=== PATIENT | female | born 1975 | race Caucasian/White ===

== ENCOUNTER 2024-02-15 13:24 | Observation (INO) ==
[2024-02-15 14:11] LABS: ABS Basophils 0.1 10^3/uL (0.0-0.1); ABS Eosinophils 0.1 10^3/uL (0.0-0.5); ABS Lymphocytes 2.3 10^3/uL (1.0-4.8); ABS Monocytes 0.9 10^3/uL (0.0-0.9); ABS Neutrophils 12.3 10^3/uL (1.5-7.6); ABS Nucleated RBC 0.01 10^3/ul; Eosinophil % 0.8 %; Hematocrit 33.2 % (35-45); Hemoglobin 11.3 g/dL (11.5-14.3); Lymphocyte % 14.6 %; Mean Corpuscular Hemoglobin 29.4 pg (27-33); Mean Corpuscular Hgb Conc 34.2 g/dL (31-36); Mean Corpuscular Volume 86.1 fL (80-97); Mean Platelet Volume 8.7 fL (7.5-11.2); Nucleated Red Blood Cells % 0.1 %/100WBC (0.0-0.8); Platelet Count 346 10^3/uL (150-450); Red Blood Count 3.86 10^6/uL (3.63-4.92); Red Cell Distribution Width 15.2 % (12-17); White Blood Count 15.7 10^3/uL (3.8-11.8)
[2024-02-15 14:19] LABS: INR 1.3 (0.85-1.14)
[2024-02-15 14:37] LABS: Albumin 3.9 g/dL (3.2-5.2); Albumin/Globulin Ratio 1.1 (1-3); Calcium 10.2 mg/dL (8.6-10.3); Creatinine, Serum 0.75 mg/dL (0.51-0.95); Globulin 3.6 g/dL (2-4); Potassium 3.4 mmol/L (3.5-5.0); Total Bilirubin 0.4 mg/dL (0.2-1.0); Total Protein 7.5 g/dL (6.4-8.9); eGFR CKD-EPI 96.9 (>60)
[2024-02-15 15:05] LABS: Urine Appearance Clear; Urine Bilirubin Negative (Negative); Urine Blood Trace (Negative); Urine Color Light-Yellow; Urine Glucose Negative (Negative); Urine Ketones Negative (Negative); Urine Nitrite Negative (Negative); Urine Protein Negative (Negative); Urine Specific Gravity 1.008 (1.002-1.030); Urine Urobilinogen Negative (Negative)
[2024-02-15 15:07] LABS: Urine Bacteria Absent /HPF (Absent); Urine Red Blood Cell Trace(0-2/hpf) /HPF (0-Trace); Urine Squamous Epithelial Cell Present /HPF (Absent); Urine White Blood Cell Trace(0-5/hpf) /HPF (0-Trace)
[2024-02-15] MEDS: Potassium Chlor 20 meq TAB.ER PO ONE (15:24)
[2024-02-15] MEDS: ceFAZolin 1 GM ADVAN 1 GM in NS 0.9% 50 ML 50 ML IVPB ONE (15:25)
[2024-02-15] MEDS ORDERED: Al Hydrox/Mg Hydrox/Simet LIQ 30 ML UDC PO PRN (15:37)
[2024-02-15] MEDS: NS 0.9% 1000 ml BAG 1,000 ML IV SCH (16:18)
[2024-02-15] MEDS: Vancomycin 1,000 MG in NS 0.9% 250 ml 250 ML IVPB ONE (16:25)
[2024-02-15] MEDS: Enoxaparin 40 MG/0.4 ML SYR SUBCUT SCH (16:30)
[2024-02-15] MEDS ORDERED: ceFAZolin 500 MG VIAL 500 MG in NS 0.9% 50 ML 50 ML IVPB SCH (22:00)
[2024-02-15] MEDS ORDERED: ceFAZolin 1 GM Q8H (ADVAN) IVPB SCH (22:00)
[2024-02-15] MEDS: ceFAZolin 1 GM Q8H (ADVAN) IVPB SCH (22:17)
[2024-02-16 06:06] LABS: Hematocrit 29.8 % (35-45); Mean Corpuscular Hemoglobin 28.8 pg (27-33); Mean Corpuscular Hgb Conc 33.7 g/dL (31-36); Mean Corpuscular Volume 85.7 fL (80-97); Mean Platelet Volume 8.8 fL (7.5-11.2); Platelet Count 363 10^3/uL (150-450); Red Blood Count 3.48 10^6/uL (3.63-4.92); Red Cell Distribution Width 15.3 % (12-17); White Blood Count 14.3 10^3/uL (3.8-11.8)
[2024-02-16 06:34] LABS: C Reactive Protein 271.73 mg/L (<8.01); Calcium 9.4 mg/dL (8.6-10.3); Creatinine, Serum 0.5 mg/dL (0.51-0.95); Potassium 3.9 mmol/L (3.5-5.0); eGFR CKD-EPI 114.2 (>60)
[2024-02-16 07:45] LABS: ABS Basophils 0.2 10^3/uL (0.0-0.1); ABS Eosinophils 0.2 10^3/uL (0.0-0.5); ABS Lymphocytes 2.2 10^3/uL (1.0-4.8); ABS Monocytes 0.8 10^3/uL (0.0-0.9); ABS Neutrophils 10.9 10^3/uL (1.5-7.6); Eosinophil % 1.2 %; Lymphocyte % 15.5 %
[2024-02-16] MEDS: Potassium Chlor 10 meq TAB PO ONE (08:08)
[2024-02-16 13:35] VITALS: BP 129/76
== END 2024-02-16 16:20 | disposition home or self-care (01) ==
LOC: ED 13:24 → EDHOLD 13:24 → MED 21:02
PROVIDERS: ADMIT Internal Medicine; ATTEND Internal Medicine